=== PATIENT | female | born 1980 | race African-American/Black ===

== ENCOUNTER 2016-10-28 16:27 | Emergency (ER) | payer MEDICAID, OTHER ==
[~2016-10-28] VITALS: Ht 152.4 cm; Wt 50.3 kg
[~2016-10-28 16:27] MED LIST: LORA0.5T PO
[2016-10-28] MEDS ORDERED: ONDANSETRON 4 MG TAB.RAPDIS SL ONE (17:00)
[2016-10-28] MEDS ORDERED: HYDROCODONE/APAP 10/325MG 1 EA TABLET PO ONE (17:00)
[2016-10-28] MEDS ORDERED: HYDROCODONE/APAP 10/325MG 1 EA TABLET ONE (17:07)
[2016-10-28] MEDS ORDERED: ONDANSETRON 4 MG TAB.RAPDIS ONE (17:07)
[2016-10-28 17:10] LABS: APPEARANCE,URINE Clear (CLEAR); BILIRUBIN,URINE Negative (NEGATIVE); BLOOD, URINE Negative Ery/uL (NEGATIVE); COLOR,URINE Yellow (YELLOW); KETONES,URINE 15 (NEGATIVE); LEUKOCYTE ESTERASE ,URINE Negative (NEGATIVE); NITRITE, URINE Negative (NEGATIVE); PH,URINE 6.5 (5.0-8.0); PROTEIN,URINE Negative (NEGATIVE); UGLUCOSE Negative (NEGATIVE)
[2016-10-28 17:12] LABS: PREGNANCY TEST URINE QUAL NEGATIVE (NEGATIVE)
[2016-10-28 17:14] LABS: BACTERIA,URINE Rare /HPF (None Seen); RBC,URINE 0-2 /HPF (0-2); SQUAMOUS EPITHELIAL CELL,UR Moderate /HPF (None Seen); WBC,URINE 0-2 /HPF (0-3)
[2016-10-28 18:15] VITALS: BP 124/91
== END 2016-10-28 18:16 | disposition home or self-care (01) ==
LOC: ER 16:36
DX: R10.2 Pelvic and perineal pain (principal); F12.10 Cannabis abuse, uncomplicated
CPT/HCPCS: 76856-TC; 81000-TC; 84703-TC; A4606; Q0162; Z7610

== ENCOUNTER 2017-10-24 10:32 | Emergency (ER) | payer MEDICAID, OTHER ==
[~2017-10-24] VITALS: Ht 152.4 cm; Wt 53.1 kg
--- NOTE | 2017-10-24 10:35 | NUR ---
KATYA FROM HOME CC OF L SIDED CP R/T UPPER BACK SINCE YESTERDAY AT AROUND 1530, ATTACHED TO MONITOR , VSS , WILL CONTINUE TO MONITOR
--- NOTE | 2017-10-24 11:14 | NUR ---
Patient discharged to home in stable condition. Written and verbal after care instructions given. Patient verbalizes understanding of instruction. VSS
[2017-10-24 11:15] VITALS: BP 125/45
== END 2017-10-24 11:16 | disposition home or self-care (01) ==
LOC: ER 10:34
DX: R07.89 Other chest pain (principal); F10.10 Alcohol abuse, uncomplicated; Z98.890 Other specified postprocedural states; Y90.9 Presence of alcohol in blood, level not specified
CPT/HCPCS: 71045; 93005 ×2; 99284; A4606 ×2; Z7610 ×2

== ENCOUNTER 2022-01-14 10:54 | Emergency (ER) | payer MEDICAID, OTHER ==
[~2022-01-14] VITALS: Ht 152.4 cm; Wt 63.5 kg
[2022-01-14 11:03] VITALS: BP 150/70
--- NOTE | 2022-01-14 11:03 | NUR ---
BIBS C/O R ARM PAIN X1 MONTH. PAIN IS 5/10 ON PAIN SCALE.
--- NOTE | 2022-01-14 11:37 | NUR ---
ENTRY OPERATOR AT BEDSIDE FOR XRAY
--- NOTE | 2022-01-14 14:26 | NUR ---
Patient discharged to home in stable condition. Written and verbal after care instructions given. Patient verbalizes understanding of instruction.
== END 2022-01-14 14:27 | disposition home or self-care (01) ==
LOC: ER 11:01
DX: M25.531 Pain in right wrist (principal); M67.431 Ganglion, right wrist
CPT/HCPCS: 73090-TC; 73100-TC; 73110

== ENCOUNTER 2023-08-26 14:09 | Emergency (ER) | payer MEDICAID ==
[~2023-08-26] VITALS: Ht 152.4 cm; Wt 73.0 kg
[2023-08-26 14:39] LABS: BASOPHILS % (AUTO) 0.4 % (0.0-2.0); EOSINOPHILS # (AUTO) 0.1 K/uL (0.0-0.7); EOSINOPHILS % (AUTO) 1.2 % (0.0-6.0); HEMATOCRIT 38 % (33-45); LYMPHOCYTES # (AUTO) 1.4 K/uL (0.8-4.8); LYMPHOCYTES % (AUTO) 27.1 % (20.0-44.0); MEAN CORPUSCULAR HEMOGLOBIN 30 PG (26.0-33.0); MEAN CORPUSCULAR HGB CONC 34 g/dl (31.0-36.0); MEAN CORPUSCULAR VOLUME 87 fL (82-100); MONOCYTES # (AUTO) 0.2 K/uL (0.1-1.30); MONOCYTES % (AUTO) 4.6 % (2.0-12.0); NEUTROPHILS # (AUTO) 3.5 K/uL (1.8-8.9); NEUTROPHILS % (AUTO) 66.7 % (43.0-81.0); PLATELET COUNT (AUTO) 297 K/uL (150-450); RED BLOOD CELL COUNT(AUTO) 4.38 MIL/uL (4.0-5.2); WHITE BLOOD COUNT (AUTO) 5.2 K/uL (4.3-11.0)
[2023-08-26 14:51] LABS: CALCIUM, SERUM 9.3 mg/dL (8.5-10.1); CREATININE 0.8 mg/dL (0.6-1.3); POTASSIUM 3.1 mmol/L (3.5-5.1)
[2023-08-26 14:58] LABS: ALBUMIN 3.6 g/dL (3.4-5.0); BILIRUBIN,DIRECT 0.2 mg/dL (0.0-0.2); BILIRUBIN,TOTAL 0.9 mg/dL (0.2-1.0)
[2023-08-26] MEDS ORDERED: IV NS 0.9% 250 ML IV ONE (15:06)
[2023-08-26] MEDS ORDERED: IOHEXOL-300 100 ML VIAL IV ONE (15:06)
[2023-08-26 15:39] LABS: APPEARANCE,URINE CLEAR (CLEAR); BILIRUBIN,URINE NEGATIVE (NEGATIVE); BLOOD, URINE NEGATIVE Ery/uL (NEGATIVE); COLOR,URINE YELLOW (YELLOW); KETONES,URINE NEGATIVE (NEGATIVE); LEUKOCYTE ESTERASE ,URINE NEGATIVE (NEGATIVE); NITRITE, URINE NEGATIVE (NEGATIVE); PROTEIN,URINE TRACE mg/dl (NEGATIVE); UGLUCOSE NEGATIVE (NEGATIVE)
[2023-08-26 15:42] LABS: PREGNANCY TEST URINE QUAL NEGATIVE (NEGATIVE)
[2023-08-26 16:50] VITALS: BP 142/79; TEMP 97.9; O2SAT 100
[2023-08-26] MEDS ORDERED: TRAM-351 PO (16:55)
[2023-08-26] MEDS ORDERED: KETO10TA2 PO (16:55)
== END 2023-08-26 17:33 | disposition home or self-care (01) ==
LOC: ER 14:14
DX: N83.12 Corpus luteum cyst of left ovary (principal); R10.2 Pelvic and perineal pain
CPT/HCPCS: 99285; 74177; 76856; 85025; 80048; 83690; 80076; 84703; 81003; 36415; J7050; Q9967

== ENCOUNTER 2024-12-03 17:58 | Emergency (ER) | payer MEDICAID, OTHER ==
[~2024-12-03] VITALS: Ht 152.4 cm; Wt 70.8 kg
[~2024-12-03 17:58] MED LIST changes: +KETO10TA2 PO; +TRAM-351 PO
[2024-12-03] MEDS: IV NS 0.9% 1,000 ML BAG IV ONE (18:56)
[2024-12-03] MEDS: MORPHINE SULFATE INJ 2 MG/ML DISP.SYRIN IV ONE (18:57)
[2024-12-03] MEDS: ONDANSETRON HCL/PF 4 MG/2 ML VIAL IVP ONE (18:57)
[2024-12-03 19:19] LABS: PREGNANCY TEST URINE QUAL NEGATIVE (NEGATIVE)
[2024-12-03 19:22] LABS: APPEARANCE,URINE CLEAR (CLEAR); BLOOD, URINE NEGATIVE Ery/uL (NEGATIVE); LEUKOCYTE ESTERASE ,URINE NEGATIVE (NEGATIVE); NITRITE, URINE NEGATIVE (NEGATIVE); UGLUCOSE NEGATIVE (NEGATIVE)
[2024-12-03 19:23] LABS: PLATELET COUNT (AUTO) 244 K/uL (150-450); RED BLOOD CELL COUNT(AUTO) 4.40 MIL/uL (4.0-5.2); RED CELL DISTRIBUTION WIDTH 13.2 % (11.5-15.0); WHITE BLOOD COUNT (AUTO) 5.5 K/uL (4.3-11.0)
[2024-12-03 20:04] LABS: CALCIUM, SERUM 9.1 mg/dL (8.5-10.1); CREATININE 0.8 mg/dL (0.6-1.3); SODIUM SERUM 142.0 mmol/L (136-145); UREA NITROGEN, BLOOD 10.0 mg/dL (7-18)
[2024-12-03 20:10] LABS: ASPARTATE AMINOTRANSFERASE 21.0 U/L (15-37); TOTAL PROTEIN, SERUM 7.9 g/dL (6.4-8.2)
[2024-12-03] MEDS ORDERED: GABA-532 PO (21:03)
[2024-12-03] MEDS ORDERED: HYDR-3972 PO (21:03)
[2024-12-03 21:28] VITALS: BP 154/104; TEMP 98; O2SAT 97
== END 2024-12-03 21:29 | disposition home or self-care (01) ==
LOC: ER 18:01
DX: R10.32 Left lower quadrant pain (principal); R30.0 Dysuria; I10 Essential (primary) hypertension; F19.10 Other psychoactive substance abuse, uncomplicated
CPT/HCPCS: 99285; 74176; 96374; 96361; 96375; 85025; 80048; 83690; 80076; 84703; 81003; 36415; J2405; J7030; J2270